=== PATIENT | male | born 1960 | race Hispanic/Latino ===

== ENCOUNTER 2020-06-17 10:12 | Emergency (ER) | payer SELFPAY ==
[2020-06-17] MEDS ORDERED: KETOROLAC 30 MG/1 ML INJ IV ONE (10:30)
[2020-06-17] MEDS ORDERED: ONDANSETRON 4 MG/2 ML INJ IV ONE (10:30)
[2020-06-17] MEDS ORDERED: fentaNYL 100 MCG/2 ML INJ IV ONE ×2 (10:30→12:05)
--- NOTE | 2020-06-17 10:37 | Emergency Department Report ---
HPI - General Time Seen by Provider: 06/17/20 10:20 - HPI HPI: Room 19 The patient is a 59-year-old male present with a chief complaint of back pain. 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 The patient states he was able to grab the pump and leaned backwards as this happened. Patient states he had low back pain immediately after this incident. 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 Patient states last night he had difficulty sleeping secondary to the pain this morning while using a sledgehamme r the pain became excruciating. Patient gives his pain a score of "100/10." ED Past Medical Hx - Past Medical History Hx Diabetes: No (? Patient states he was being evaluated for this but never followed up) - Surgical History Past Surgical History?: No - Family History Family history: no significant - Social History Smoking Status: Never Smoker Substance Use Type: None (Denies illicit drug use), Alcohol (Occasional) - Medications Home Medications: Home Medications Medication Instructions Recorded Confirmed Last Taken Type Cyclobenzaprine [Flexeril] 10 mg PO TID PRN #10 tablet 06/17/20 Unknown Rx HYDROcodone/APAP 5-325 [[place] 1 - 2 each PO Q6HR PRN #14 tablet 06/17/20 Unknown Rx 5/325] Ibuprofen [Motrin 800 MG tab] 800 mg PO Q8HR PRN #20 tablet 06/17/20 Unknown Rx ED Review of Systems ROS: Stated complaint: BACK PAIN Other details as noted in HPI Constitutional: no symptoms reported Respiratory: no symptoms reported Endocrine: no symptoms reported Musculoskeletal: back pain Physical Exam - Physical Exam Physical Exam: GENERAL: The patient is well-developed well-nourished male lying on stretcher not appearing to be in acute distress. [] HEENT: Normocephalic. Atraumatic. Extraocular motions are intact. Patient has moist mucous membranes. NECK: Supple. Trachea midline CHEST/LUNGS: Clear to auscultation. There is no respiratory distress noted. HEART/CARDIOVASCULAR: Regular. There is no tachycardia. There is no gallop rub or murmur. ABDOMEN: Abdomen is soft, nontender. Patient has normal bowel sounds. There is no abdominal distention. SKIN: There is no rash. There is no edema. There is no diaphoresis. NEURO: The patient is awake, alert, and oriented. The patient is cooperative. The patient has no focal neurologic deficits. The patient has normal speech MUSCULOSKELETAL: There is left paraspinous lumbar tenderness to palpation. There is no evidence of acute injury. ED Medical Decision Making - Radiology Data Radiology results: report reviewed (Lumbar spine x-ray), image reviewed (Lumbar spine x-ray) interpreted by me: Lumbar spine x-ray-no acute fracture, no malalignment, no foreign body seen [facility] [address] [place] [address] XRay Report Signed Patient: GARY LINDER MR#: [id number] : 1960 Acct:[id number] Age/Sex: 59 / M ADM Date: 06/17/20 Loc: ED Attending Dr: Ordering Physician: JESSE MASTERS MD Date of Service: 06/17/20 Procedure(s): XR spine lumbosacral 2-3V Accession Number(s): [id number] cc: JESSE MASTERS MD Fluoro Time In Minutes: LUMBAR SPINE 3 VIEWS INDICATION / CLINICAL INFORMATION: Low back pain after being struck by heavy object. COMPARISON: None available. FINDINGS: VERTEBRAE: No acute fracture. No significant malalignment. DISC SPACES / FACET JOINTS:Minimal multilevel discogenic and facet spondylosis. PARASPINAL SOFT TISSUES:No significant abnormality. ADDITIONAL FINDINGS: None. Signer Name: Bernice Austin MD Signed: 06/17/2020 11:20 AM Workstation Name: [id number] Transcribed By: DT Dictated By: Cezar Austin MD Electronically Authenticated By: Cezar Austin MD Signed Date/Time: 06/17/20 1120 DD/ 1120 TD/TT: - Differential Diagnosis Lumbar strain, occult fracture, lumbar radiculopathy Critical care attestation.: If time is entered above; I have spent that time in minutes in the direct care of this critically ill patient, excluding procedure time. ED Disposition Clinical Impression: Acute lumbar myofascial strain Disposition: DC-01 TO HOME OR SELFCARE Is pt being admited?: No Does the pt Need Aspirin: No Condition: Stable Instructions: Muscle Strain, [id number], Lumbosacral Strain Additional Instructions: Return to the emergency department should you develop worsening symptoms, inability to tolerate food or liquids, high fever or any other concerns Prescriptions: Cyclobenzaprine [Flexeril] 10 mg PO TID PRN #10 tablet PRN Reason: Muscle Spasm Ibuprofen [Motrin 800 MG tab] 800 mg PO Q8HR PRN #20 tablet PRN Reason: Pain, Moderate (4-6) HYDROcodone/APAP 5-325 [[place] 5/325] 1 - 2 each PO Q6HR PRN #14 tablet PRN Reason: Pain Referrals: JAE GAMEZ MD [Staff Physician] - 2-3 Days (Dr. Gamez is an orthopedic surgeon. Please follow-up with him for further evaluation) Time of Disposition: 11:39
[2020-06-17 10:39] VITALS: BP 146/73
--- NOTE | 2020-06-17 11:24 | XRay Report ---
LUMBAR SPINE 3 VIEWS INDICATION / CLINICAL INFORMATION: Low back pain after being struck by heavy object. COMPARISON: None available. FINDINGS: VERTEBRAE: No acute fracture. No significant malalignment. DISC SPACES / FACET JOINTS:Minimal multilevel discogenic and facet spondylosis. PARASPINAL SOFT TISSUES:No significant abnormality. ADDITIONAL FINDINGS: None. Signer Name: Bernice Austin MD Signed: 06/17/2020 11:20 AM Workstation Name: [id number]
== END 2020-06-17 12:20 | disposition home or self-care (01) ==
LOC: ED 10:12
DX: S39.012A Strain of muscle, fascia and tendon of lower back, initial encounter (principal); W20.8XXA Other cause of strike by thrown, projected or falling object, initial encounter; Y93.89 Activity, other specified; Y92.89 Other specified places as the place of occurrence of the external cause; Y99.8 Other external cause status
CPT/HCPCS: 72100; 96374; 96375; 96376; 99283; J1885; J2405; J3010